=== PATIENT | female | born 1965 | race Two or more races ===

== ENCOUNTER → 2017-04-13 | Outpatient (CLI) | payer MEDICAID ==
[~2017-04-13] MED LIST: AMOXICILLIN 50500 MG PO; PREDNISONE 20MG20 MG PO; ZITHROMAX Z PA250 MG PO
--- NOTE | 2017-04-13 15:21 | RADIOLOGY REPORT PS360 ---
US [id number] HISTORY: RECURRENT UTI, DYSURIA ORDERING PHYSICIAN: Reese Drummond MD PATIENT AGE: 51 years COMPARISON: None FINDINGS: RIGHT KIDNEY:Unremarkable. Normal size and echogenicity. No hydronephrosis. 13 x 4 x 7.5 cm LEFT KIDNEY:Unremarkable. No hydronephrosis. Normal size and echogenicity. 12 x 5 x 5 cm OTHER FINDINGS: No cortical thinning IMPRESSION: Negative bilateral renal ultrasound
--- NOTE | 2017-04-13 15:23 | RADIOLOGY REPORT PS360 ---
US URINARY BLADDER HISTORY: RECURRENT UTI, DYSURIA ORDERING PHYSICIAN: Reese Drummond MD PATIENT AGE: 51 years COMPARISON: None FINDINGS: The bladder has an unremarkable sonographic appearance. Full bladder volume is calculated to be 220 mL's. Post void volume is calculated be 13 mL's. IMPRESSION: Essentially negative urinary bladder ultrasound with only minimal postvoid residual urine of 13 mL
== END ==
LOC: RAD 12:44
DX: N39.0 Urinary tract infection, site not specified (principal); R30.0 Dysuria

== ENCOUNTER → 2017-05-14 | Outpatient (CLI) | payer MEDICAID ==
--- NOTE | 2017-05-15 08:47 | RADIOLOGY REPORT PS360 ---
MRI-BRAIN W/O HISTORY: Headache and dizziness with sensitivity to touch on the left side of body DIZZINESS, DAILY PERSISTENT HEADACHE ORDERING PHYSICIAN: Tamra MARTINEZ PATIENT AGE: 51 years COMPARISON: None TECHNIQUE: Standard multiplanar multiecho sequences are performed without contrast. FINDINGS: No midline shift, mass effect, intracranial hemorrhage, hydrocephalus, or acute infarction is evident. The cerebellopontine angles, cerebellum, and brainstem are unremarkable. There is normal reeves-white matter differentiation with no significant abnormal T2 white matter hyperintensities. The capital gyri are unremarkable in the temporal horns are symmetric. Unremarkable pituitary, optic chiasm, and corpus callosum. The upper cervical cord has an unremarkable appearance. No mastoid effusion or sinus air-fluid level. IMPRESSION: Negative MRI of the brain without contrast
== END ==
LOC: RAD 11:11
DX: G44.52 New daily persistent headache (NDPH) (principal); R42 Dizziness and giddiness

== ENCOUNTER → 2017-06-01 | Outpatient (CLI) | payer MEDICAID ==
--- NOTE | 2017-06-01 12:51 | RADIOLOGY REPORT PS360 ---
US RUQ-(ABD LTD)1ORGAN/QUAD/FU HISTORY: RUQ PAIN, DYSPEPSIA ORDERING PHYSICIAN: Tamra MARTINEZ PATIENT AGE: 51 years COMPARISON: None FINDINGS: PANCREAS:Unremarkable. No obvious mass or abnormal fluid collection. No ductal dilatation LIVER:No focal liver lesions demonstrated. Homogeneous echogenicity. No intrahepatic biliary ductal dilatation evident RIGHT KIDNEY:Unremarkable. Normal size and echogenicity. No hydronephrosis GALLBLADDER:No gallstones, gallbladder wall thickening, pericholecystic fluid, or biliary dilatation. IMPRESSION: Unremarkable right upper quadrant ultrasound
== END ==
LOC: RAD 07:59
DX: R10.13 Epigastric pain (principal); R10.11 Right upper quadrant pain